=== PATIENT | female | born 1995 | race Caucasian/White ===

== ENCOUNTER 2019-03-12 06:00 | Inpatient (IN) ==
[2019-03-12] MEDS ORDERED: Metoclopramide 10 MG/2 ML VIAL IVP PRN (06:08)
[2019-03-12] MEDS ORDERED: Lidocaine 1% 20 ML MDV ID PRN (06:08)
[2019-03-12] MEDS ORDERED: Naloxone 0.4 MG/ML INJ IVP PRN (06:08)
[2019-03-12] MEDS ORDERED: *HR* Nalbuphine 10 MG/ML AMPUL IVP PRN (06:08)
[2019-03-12] MEDS ORDERED: Famotidine 20 MG/2 ML VIAL IVP PRN (06:08)
[2019-03-12] MEDS ORDERED: miSOPROStol 25 MCG TABLET VG PRN (06:08)
[2019-03-12 06:44] LABS: Amphetamine Screen,Urine Negative ng/mL (Cutoff=1000); Barbiturate Screen,Urine Negative ng/mL (Cutoff=200)
[2019-03-12 06:45] LABS: Benzodiazepines Screen,Urine Negative ng/mL (Cutoff=300); Cannabinoid Screen,Urine Negative ng/mL (Cutoff = 50); Cocaine Screen,Urine Negative ng/mL (Cutoff= 300); Opiate Screen,Urine Negative ng/mL (Cutoff=300); Phencyclidine Screen,Urine Negative ng/mL (Cutoff=25)
[2019-03-12] MEDS ORDERED: D5% in 0.45% NACL 1,000 ML IVC SCH (06:45)
[2019-03-12 06:51] LABS: Basophils % 0.2 %; Eosinophils # 0.2 K/mcL (0.0-0.6); Eosinophils % 1.5 %; Hematocrit 33.9 % (35.3-44.9); Hemoglobin 10.7 g/dL (11.5-15.4); Immature Granulocytes % 0.5 % (0-4); Lymphocytes # 2.3 K/mcL (0.6-4.6); Lymphocytes % 23.1 %; Mean Corpuscular HGB Conc 31.6 g/dL (31.6-35.5); Mean Corpuscular Hemoglobin 24.8 pg (28.0-33.3); Mean Corpuscular Volume 78.7 fL (83.0-100.0); Monocytes # 0.6 K/mcL (0.0-1.3); Neutrophils # 6.7 K/mcL (1.6-8.9); Platelet Count 198 K/mcL (140-400); Red Blood Count 4.31 M/mcL (3.82-4.97); Red Cell Distribution Width 14.3 % (11.5-14.5); Segmented Neutrophils % 68.7 %; White Blood Count 9.7 K/mcL (4.3-11.1)
[2019-03-12] MEDS ORDERED: miSOPROStol 25 MCG TABLET PO SCH (08:00)
--- NOTE | 2019-03-12 08:00 | Anesthesia Evaluation PreOp ---
Date of Encounter: 03/12/19 Time of Encounter: 07:58 - Past History Planned Operation: CHAUNCEY Cardiac History: Denies any Significant Hx Pulmonary History: Former smoker, Pack/yr (1), Smoking Cessation (2016) WINDSHIELD TECHNICIAN History: Denies Any Significant HX Other Medical History: Denies Any Significant HX Anesthesia History: No Prior Anesthetic Complications (never had GA; denies fam sarita h/o GA complications), Past Anesthesia (CHAUNCEY x 1--no issues) : Yes Alcohol Use: none Drug use: none Medications and Allergies No Known Home Drugs 03/12/19 [History] Allergy/AdvReac Type Severity Reaction Status Date / Time No Known Allergies Allergy Verified 11/03/16 11:54 - Meds/Allergy Pre-op Review Medications Reviewed: Yes Allergies Reviewed: Yes Beta Blockers on Current Med List: No Anesthesia Results - Labs 03/12/19 06:20 Anesthesia Exam 126/77, HR 65 O2 Sat Height 1.63 m Weight 87.09 kg NPO (# of Hours): solids > 8hrs Pain Scale: 0 Pain Scale Used: Numeric (1 - 10) - HEENT Pupil (Motor): Pupils equal Mallampati: II Teeth: Normal Oral Opening: Greater than 3 - W[employer]IELD TECHNICIAN LOC: Oriented [employer] TECHNICIAN Motor: Normal RUE, Normal LUE, Normal RLE, Normal LLE, Normal Face [employer]SHIELD TECHNICIAN Sensory: Normal: RUE, LUE, RLE, LLE, Face - Cardiac Rhythm: Regular Murmur: None - Pulmonary Breath Sounds: bilateral Clear Respiratory Effort: Symmetrical Anesthesia Assess/Plan ASA Score: 2 Level of consciousness: Cooperative, Oriented, Tranquil Anesthetic Plan: Epidural Autologous Blood: No Monitoring Plan: Standard Monitors Recovery Plan: Other
[2019-03-12] MEDS ORDERED: Bupivacaine-MPF 0.25% 10 ML VIAL EP ONE (08:01)
[2019-03-12] MEDS ORDERED: *HR* FentaNYL (PF) 100 MCG/2 ML VIAL EP ONE (08:01)
[2019-03-12] MEDS ORDERED: Epidural Premix (fent/bupiv) 110 ML EP SCH (08:15)
[2019-03-12] MEDS ORDERED: Oxytocin 20 units/ LR 1000 mL 20 UNIT/1,000 ML BAG IVC SCH (11:15)
--- NOTE | 2019-03-12 11:28 | OB/GYN History & Physical ---
Date of Encounter: 03/12/19 Time of Encounter: 11:17 Assessment and Plan (1) 39 weeks gestation of Current visit: Yes Status: Acute (2) Rh negative state in antepartum period Current visit: Yes Status: Acute (3) History of marijuana use Current visit: Yes Status: Acute (4) History of cocaine abuse Current visit: Yes Status: Acute (5) Polyhydramnios affecting in third trimester Current visit: Yes Status: Acute MIKO 29cm at 38 weeks. Admit for IOL at 39w2d. Hess/cytotec induction. Epidural when requested. Anticipate . POC per Dr. Melton. History of Present Illness Chief complaint: polyhydramnios HPI: Ms. Grayson is a 23 year old female presenting at 39w2d for IOL due to polyhydramnios. This is complicated by circumvallate placenta with lakes as well as unilateral CP cyst (resolved at 28 weeks), and anemia. Pt with history of cocaine and marijuana use documented in records from 08/12 at [facility]. Most recent US 03/04/19 with MIKO 29cm, vtx presentation, anterior placenta. Pt denies any drug use with this . She denies any complaints today. O negative Rubella immune Varicella immune Hep B, HIV, Treponema negative GBS negative GC/CT not performed in this Past Med Surg Social Fam HX - Past Medical History Medical history: no medical history Psychiatric history: no psych history - Past Surgical History Surgical History: no surgical history - Social History Smoking Status: Former smoker Smokeless Tobacco Status: No Alcohol use: none Drug use: none Obstetrical History - Pregnancies : 2 Para: 1 Term: 1 : 0 Ab's: 0 Livin Medications and Allergies No Known Home Drugs 03/12/19 [History] Allergy/AdvReac Type Severity Reaction Status Date / Time No Known Allergies Allergy Verified 11/03/16 11:54 Review of System OB All systems PM: reviewed and no additional remarkable complaints except as stated Exam - Constitutional Constitutional: well developed, well nourished, no acute distress - HEENT HEENT: Mucus Membranes Moist - Lungs Respiratory exam: CTAB - Cardiovascular Cardiovascular exam: RRR - Abdomen Abdomen: Present: gravid, non tender - Extremities Extremities exam: normal inspection - Vulva Vulva: bilateral: normal - Cervix Dilation: 2 Effacement: 70 - Anus/Rectum Anus/Rectum: Present: normal perianal skin Results Result Diagrams: 03/12/19 06:20 Abnormal lab results Hgb 10.7 g/dL (11.5-15.4) L 03/12/19 06:20 Hct 33.9 % (35.3-44.9) L 03/12/19 06:20 MCV 78.7 fL (83.0-100.0) L 03/12/19 06:20 MCH 24.8 pg (28.0-33.3) L 03/12/19 06:20 All other labs normal. - VTE Reasons for not Prescribing Prophylaxis: Treatment not Indicated - Low risk for VTE
--- NOTE | 2019-03-12 12:32 | Event Note ---
Date of Encounter: 03/12/19 Time of Encounter: 09:40 The patient gave informed consent for a Hess balloon to assist with induction of labor. heart tones noted to be reactive. Contractions were irregular on external toco. Cervical exam was 2/70/-3. Vertex confirmed. A Hess balloon was inserted with sterile gloves into the cervix. It was inflated with 60 mL of sterile saline. Guidewire was withdrawn. Patient tolerated well. heart tones remained reassuring. Induction with Cytotec continued
[2019-03-12] MEDS ORDERED: Ringers Solution, Lactated 1,000 ML ONE ×2 (13:42→16:23)
--- NOTE | 2019-03-12 14:49 | Anesthesia Procedures ---
Date of Encounter: 03/12/19 Time of Encounter: 14:21 Procedures: Anesthesia - Epidural/Spinal Patient ID/Chart reviewed: Yes Patient examined: Yes OB Eval: Gestational age: 39 weeks 2 days OB Eval: : 2 OB Eval: Hx Para: 1 OB Eval: Dilated at (cm): 4 OB Eval: Contractions: Non-stressed pattern Consent Obtained: Yes Supplemental Oxygen: None/Room Air Site Prep: Aseptic Technique, Sterile prep and drape, 0.5% Chlorhexidine/Alcohol Patient position: upright Local Anesthetic: Lidocaine 1% Amount of Local Anesthetic used: 3 Touhy Needle Gauge: 18 Touhy Needle Depth (cm): 5 Catheter Depth at Skin (cm): 10 Test Dose (1.5% Lido + Epi): Volume given (mls): 5 Test Dose Result: Negative Loading Dose: 0.25% Marcaine (mls): 5 Loading Dose: Fentanyl (mcg): 100 Loading Dose Administered: Thru Catheter Infusion Med: 0.125% Bupivacaine w/ 2 mcg/ml Fentanyl Infusion Rate (mls/hr): 14 (w/ demand bolus of 5mL q30min PRN) Catheter Secured in Place: Tegaderm, Tape Interspace Used: L4-L5 Loss of Resistance (MOLINA): Yes Blood: No CSF: No Paresthesia: No Procedure: successful on 1st attempt; patient tolerated procedure well; VSS Vitals + FHT's: see Nitin BAEZ's electronic records for VS entry
[2019-03-12 15:15] LABS: Chlamydia Trachomatis DNA Ur NOT DETECTED (Not Detect)
--- NOTE | 2019-03-12 16:19 | OB Labor Progress Note ---
Date of Encounter: 03/12/19 Time of Encounter: 16:00 Labor Progress Note - Subjective Subjective: The patient is comfortable with her epidural. - Vital Signs Vital Signs: Afebrile, vital signs stable - Cervix Cervix: 4-5/80/-1 , vertex with presenting part well applied - Heart Tones Heart Tones: heart tones 120s, accelerations with scalp stim - Throop Throop: Contractions every 3-4 minutes on 12 milliunits of Pitocin - Interventions Interventions: 39 week IUP with polyhydramnios for induction of labor, patient of Dr. Damon - Plan Plan: Amniotomy with moderate amount of clear fluid seen. IUPC placed. Continue induction, anticipate vaginal delivery
[2019-03-12] MEDS ORDERED: Ondansetron 4 MG/2 ML VIAL IVP PRN (17:16)
[2019-03-12] MEDS ORDERED: 0.9 % Sodium Chloride 1,000 ML ONE (20:37)
--- NOTE | 2019-03-12 23:15 | OB/GYN Procedure Note ---
Delivery - Delivery Date: 03/12/19 Provider: Brigitte Melton Intrapartum events: none, polyhydramnios Delivery induction: AROM, oxytocin, misoprostol Delivery augmentation: rupture of membranes, pitocin Delivery monitor: external FHT, external uterine, internal FHT, internal uterine Anesthesia: epidural Quantitated Blood Loss: 200 - (s) A Delivery Date: 03/12/19 Infant Delivery Time: 22:52 Presentation: vertex Position: YESY Route of delivery: Gender: Female Viability: Viable Pounds: 8 Ounces: 1 Weight Gram: 3.67 kg at 1 minute: 8 at 5 mins: 9 Shoulder Dystocia: encountered Shoulder Dystocia Maneuvers: Karlene maneuver, Enrique Screw maneuver, Reverse Enrique Screw maneu Shoulder dystocia time elapsed: 90 seconds Specimens collected: cord blood Placenta: spontaneous, uterine exploration Cord: nuchal cord, 3 umbilical vessels, nuchal reduced - Repair Episiotomy: none Laceration Description: Perineal - 1st Degree (Repaired with 3-0 Monocryl) - Complications Delivery complications: none Delivery comments: The patient was complete and pushing with epidural anesthesia and had a spontaneous vaginal delivery in the YESY position with a 90 second shoulder dystocia treated with Karlene, Enrique screw, and reverse wood screw with a vaginal delivery of a vigorous female weighing 8 lbs. 1 oz. with Apgars of 8 at 1 minute and 9 at 5 minutes. There was nuchal cord 1 which was reduced. The placenta was delivered spontaneous and intact. The uterus was explored to make sure there are no retained products. Placenta was evaluated carefully. There was a first-degree perineal laceration which was repaired with 3-0 Monocryl in the usual fashion. Estimated blood loss 200 mL's. Co mplications none. Both mother and recovering in stable condition in the LDR.
[2019-03-13] MEDS ORDERED: Benzocaine/Menthol 56 GM AEROSOL SPRAY TP PRN (00:21)
[2019-03-13] MEDS ORDERED: Oxytocin 20 units/ LR 1000 mL 20 UNIT/1,000 ML BAG IVC SCH (00:21)
[2019-03-13] MEDS ORDERED: Rho Immune Globulin 1,500 UNIT SYRINGE IM PRN (00:21)
[2019-03-13] MEDS: Ibuprofen 600 MG TABLET PO SCH ×3 (01:15→15:49)
[2019-03-13] MEDS: Acetaminophen 325 MG TABLET PO SCH (08:13)
[2019-03-13] MEDS: Prenatal Vit/FA 1 EACH TABLET PO SCH (08:13)
--- NOTE | 2019-03-13 08:39 | OB/GYN Progress Note ---
Date of Encounter: 03/13/19 Time of Encounter: 08:37 - Assessment and Plan (1) Vaginal delivery Current Visit: Yes Status: Acute Continue routine care Anticipate discharge home tomorrow Subjective - Subjective Principal diagnosis: S/P Vaginal delivery Interval history: S/P vaginal delivery day 1 Pain is well controlled Lochia is light and without clots VSS tolerating regular diet; passing flatus voiding without difficulty bottle feeding Anticipate discharge home tomorrow POC per consult with Dr Lerma Patient reports: appetite normal, voiding normally, pain well controlled, ambulating normally [place]: doing well, bottle feeding Objective - Latest Vital Signs Latest vital signs: Vital Signs Temp Pulse Resp BP Pulse Ox 03/13/19 08:35 98.6 F 86 16 133/88 99 03/13/19 03:30 98.2 F 73 14 121/67 96 03/13/19 02:21 98.3 F 88 14 118/70 97 03/13/19 01:20 98.1 F 64 14 123/77 98 03/13/19 01:01 97.7 F 68 14 123/69 99 03/13/19 00:45 97.9 F 71 14 118/65 98 03/13/19 00:31 98.1 F 74 16 120/72 99 03/13/19 00:15 97.6 F 73 14 127/68 99 Intake and Output 03/12/19 03/13/19 03/13/19 23:59 07:59 15:59 Output Total 1650 / 1650 Balance -1650 / -1650 Output: Straight Cath 1650 / 1650 - Exam Lungs: bilateral: normal Chest: Normal S1, Normal S2 Extremities: Present: normal Abdomen: Present: normal appearance, soft. Absent: gravid, tenderness Uterus: Present: normal, firm Uterus Position: 2 Fingers Below Umbilicus, Midline - Labs Labs: Laboratory Results - last 24 hr 03/12/19 13:28 Ur C. trach DNA (PCR) NOT DETECTED U N.gonorrhoeae DNA PCR NOT DETECTED
[2019-03-14] MEDS: Ibuprofen 600 MG TABLET PO SCH ×2 (09:09→14:05)
[2019-03-14] MEDS: Acetaminophen 325 MG TABLET PO SCH ×2 (09:09→14:05)
[2019-03-14] MEDS: Prenatal Vit/FA 1 EACH TABLET PO SCH (09:10)
[2019-03-14 10:45] VITALS: BP 120/76
--- NOTE | 2019-03-14 12:47 | Discharge Summary ---
Date of Encounter: 03/14/19 Time of Encounter: 12:44 - Discharge Diagnosis (1) Vaginal delivery Priority: Primary Status: Acute Comments: Continue routine care discharge home today follow up with Dr. Damon in 4-6 weeks - Discharge Medications Prescriptions: New Ibuprofen [Motrin] 600 mg PO Q6HR #60 tablet Benzocaine/Menthol [place] [Dermoplast [place]] 1 appl TP QID PRN aerosol PRN Reason: See Comments Home Medications: Benzocaine/Menthol [place] [Dermoplast [place]] 1 appl TP QID PRN aerosol 03/14/19 [Rx] Ibuprofen [Motrin] 600 mg PO Q6HR #60 tablet 03/14/19 [Rx] Allergies/Adverse Reactions: Allergy/AdvReac Type Severity Reaction Status Date / Time No Known Allergies Allergy Verified 11/03/16 11:54 Data Procedures and tests throughout hospitalization: Laboratory Tests 03/12/19 03/12/19 03/12/19 06:20 06:20 13:28 WBC 9.7 RBC 4.31 Hgb 10.7 L Hct 33.9 L MCV 78.7 L MCH 24.8 L MCHC 31.6 RDW 14.3 Plt Count 198 MPV 12.0 Immature Gran % 0.5 Seg Neutrophils % 68.7 Lymphocytes % 23.1 Monocytes % 6.0 Eosinophils % 1.5 Basophils % 0.2 Neutrophils # 6.7 Lymphocytes # 2.3 Monocytes # 0.6 Eosinophils # 0.2 Basophils # 0.0 Urine Opiates Screen Negative Ur Barbiturates Screen Negative Ur Phencyclidine Scrn Negative Ur Amphetamines Screen Negative U Benzodiazepines Scrn Negative Urine Cocaine Screen Negative U Marijuana (THC) Screen Negative Ur Drug Screen Interp See Below Ur C. trach DNA (PCR) NOT DETECTED U N.gonorrhoeae DNA PCR NOT DETECTED Screen Baby's Blood Type Mother's Blood Type Rhogam Indicated Rhogam Req for Mother 03/12/19 23:50 WBC RBC Hgb Hct MCV MCH MCHC RDW Plt Count MPV Immature Gran % Seg Neutrophils % Lymphocytes % Monocytes % Eosinophils % Basophils % Neutrophils # Lymphocytes # Monocytes # Eosinophils # Basophils # Urine Opiates Screen Ur Barbiturates Screen Ur Phencyclidine Scrn Ur Amphetamines Screen U Benzodiazepines Scrn Urine Cocaine Screen U Marijuana (THC) Screen Ur Drug Screen Interp Ur C. trach DNA (PCR) U N.gonorrhoeae DNA PCR Screen NEGATIVE Baby's Blood Type A RH POSITIVE Mother's Blood Type O RH NEGATIVE Rhogam Indicated YES Rhogam Req for Mother 1 Date of admission: 03/12/19 06:07 Primary care physician: PCP NONE Consults: 03/12/19 12:37 Consult to Tool And Equipment Rental Clerk (W&C) [CONS] Routine Reason For Exam: Reason for SW Consult: hx of drug use in last 3 years 03/13/19 00:21 Consult to Mining Analyst [CONS] Routine Comment: Vaginal delivery, consult needed Consult to Tool And Equipment Rental Clerk [CONS] Routine Reason for SW Consult: remote history + cocaine + THC Discharging clinician: Chel Hubbard Anticipated date of discharge: 03/14/19 - Patient Status Disposition: Home, Self-Care Condition: Good Functional capacity at discharge: independent ambulation - Discharge Instructions Follow Up With: NONE,PCP [Primary Care Provider] - Gerard Damon DO [Partnered Physician] - - Diet and Activity Activity: increase activity as tolerated Diet: regular diet Hospital Course Reason for admission: active labor Delivery: Episiotomy: none Laceration: 1st degree Other procedures: none complications: none Discharge diagnosis: IUP at term delivered [place] baby: female (bottle feeding) Time Attestation: Total time spent providing and/or coordinating discharge services: Time Spent: Less than 30 minutes Exam - Constitutional Vitals: Temp Pulse Resp BP Pulse Ox 98 F 74 16 120/76 98 03/14/19 08:15 03/14/19 08:15 03/14/19 08:15 03/14/19 08:15 03/14/19 08:15 General appearance IM: A&O X 3, pleasant, answers questions appropriately - Respiratory Respiratory exam: Present: CTAB - Cardiovascular Cardiovascular exam IM: Present: RRR, +S1, +S2 - GI/Abdominal GI/Abdominal exam IM: normal bowel sounds - Uterine Tone: Firm Uterus Position: 1 Finger Below Umbilicus, Midline - Extremities Exam Extremities exam IM: Present: full ROM, normal capillary refill, normal inspection - Neurological Exam Neurological exam: alert, oriented X3, reflexes normal
== END 2019-03-14 15:54 | disposition home or self-care (01) | DRG 560 ==
LOC: 1NENULAB 06:07 → 1NENUOBS 03-13 00:33
PROVIDERS: ADMIT Obstetrics & Gynecology; ATTEND Obstetrics & Gynecology

== ENCOUNTER 2020-07-17 06:19 | Inpatient (IN) ==
[2020-07-17] MEDS ORDERED: Metoclopramide 10 MG/2 ML VIAL IVP PRN (06:22)
[2020-07-17] MEDS ORDERED: Famotidine 20 MG/2 ML VIAL IVP PRN (06:22)
[2020-07-17] MEDS ORDERED: *HR* FentaNYL (PF) 100 MCG/2 ML VIAL IVP PRN (06:22)
[2020-07-17] MEDS ORDERED: Naloxone 0.4 MG/ML INJ IVP PRN (06:22)
[2020-07-17] MEDS ORDERED: Ondansetron 4 MG/2 ML VIAL IVP PRN (06:22)
[2020-07-17] MEDS ORDERED: Lidocaine 1% 20 ML MDV INFILT PRN (06:22)
[2020-07-17] MEDS ORDERED: Ringers Solution, Lactated 1,000 ML IVC SCH (06:30)
[2020-07-17] MEDS ORDERED: FLU Vac QV 20-21 (6Month+)/PF 0.5 ML SYRINGE IM ONE (06:42)
[2020-07-17 07:16] LABS: Basophils % 0.3 %; Eosinophils # 0.1 K/mcL (0.0-0.6); Hematocrit 36.7 % (35.3-44.9); Hemoglobin 11.4 g/dL (11.5-15.4); Immature Granulocytes % 0.5 % (0-4); Lymphocytes % 12.5 %; Mean Corpuscular HGB Conc 31.1 g/dL (31.6-35.5); Mean Corpuscular Hemoglobin 24.7 pg (28.0-33.3); Mean Corpuscular Volume 79.6 fL (83.0-100.0); Mean Platelet Volume 11.9 fL (9.4-12.4); Monocytes # 0.7 K/mcL (0.0-1.3); Monocytes % 8.6 %; Neutrophils # 6.2 K/mcL (1.6-8.9); Platelet Count 202 K/mcL (140-400); Red Blood Count 4.61 M/mcL (3.82-4.97); Red Cell Distribution Width 14.6 % (11.5-14.5); Segmented Neutrophils % 77.1 %
[2020-07-17] MEDS ORDERED: EPHEDrine 50 MG/ML VIAL IVP PRN (07:45)
[2020-07-17] MEDS ORDERED: *HR* FentaNYL (PF) 100 MCG/2 ML VIAL EP ONE (07:45)
[2020-07-17] MEDS ORDERED: *HR* FentaNYL (PF) 100 MCG/2 ML VIAL ONE ×2 (07:50→16:30)
[2020-07-17 07:54] LABS: Amphetamine Screen,Urine Negative ng/mL (Cutoff=1000); Barbiturate Screen,Urine Negative ng/mL (Cutoff=200); Benzodiazepines Screen,Urine Negative ng/mL (Cutoff=200); Cannabinoid Screen,Urine Negative ng/mL (Cutoff = 50); Cocaine Screen,Urine Negative ng/mL (Cutoff= 300); Opiate Screen,Urine Negative ng/mL (Cutoff=300); Phencyclidine Screen,Urine Negative ng/mL (Cutoff=25)
[2020-07-17] MEDS: miSOPROStoL 25 MCG TABLET PO PRN ×2 (08:03→14:16)
[2020-07-17] MEDS: Epidural Premix (fent/bupiv) 110 ML EP SCH ×2 (16:03→23:09)
[2020-07-17] MEDS ORDERED: Ropivacaine/PF 0.2% 20 ML VIAL ONE (16:31)
[2020-07-17] MEDS ORDERED: Oxytocin 20 units/ LR 1000 mL 20 UNIT/1,000 ML BAG IVC SCH (19:30)
[2020-07-17] MEDS ORDERED: 0.9 % Sodium Chloride 1,000 ML ONE (23:19)
[2020-07-18] MEDS ORDERED: Measles/Mumps/Rubella Vacc 0.5 ML VIAL SQ PRN (06:44)
[2020-07-18] MEDS ORDERED: Rho Immune Globulin 1,500 UNIT SYRINGE IM PRN (06:44)
[2020-07-18] MEDS ORDERED: Acetaminophen 325 MG TABLET PO PRN (06:44)
[2020-07-18] MEDS ORDERED: Oxytocin 20 units/ LR 1000 mL 20 UNIT/1,000 ML BAG IVC SCH (06:44)
[2020-07-18] MEDS: Ibuprofen 600 MG TABLET PO PRN ×3 (07:19→20:45)
[2020-07-18] MEDS ORDERED: Prenatal Vit/FA 1 EACH TABLET PO SCH (09:00)
[2020-07-18] MEDS ORDERED: NON-FORMULARY MEDICATION 1 EACH EACH (Pnv No.95/Ferrous Fum/Folic Ac [Prenatal Caplet] 1 T PO SCH (09:00)
[2020-07-19] MEDS: Ibuprofen 600 MG TABLET PO PRN (04:13)
[2020-07-19 05:13] VITALS: BP 106/76
[2020-07-19 08:33] LABS: Basophils % 0.3 %; Eosinophils # 0.1 K/mcL (0.0-0.6); Eosinophils % 0.8 %; Hematocrit 35.9 % (35.3-44.9); Immature Granulocytes % 0.5 % (0-4); Lymphocytes # 1.5 K/mcL (0.6-4.6); Lymphocytes % 24.3 %; Mean Corpuscular HGB Conc 30.6 g/dL (31.6-35.5); Mean Corpuscular Hemoglobin 24.8 pg (28.0-33.3); Mean Platelet Volume 11.8 fL (9.4-12.4); Monocytes # 0.7 K/mcL (0.0-1.3); Monocytes % 10.7 %; Platelet Count 154 K/mcL (140-400); Red Blood Count 4.43 M/mcL (3.82-4.97); Red Cell Distribution Width 15.2 % (11.5-14.5); Segmented Neutrophils % 63.4 %; White Blood Count 6.3 K/mcL (4.3-11.1)
[2020-07-19] MEDS ORDERED: FLU Vac QV 20-21 (6Month+)/PF 0.5 ML SYRINGE IM ONE (09:41)
== END 2020-07-19 12:35 | disposition home or self-care (01) | DRG 560 ==
LOC: 1NENULAB 06:19 → 1NENUOBS 07-18 06:44
PROVIDERS: ADMIT Student in an Organized Health Care Education/Training Program; ATTEND Student in an Organized Health Care Education/Training Program